=== PATIENT | female | born 1990 | race African-American/Black ===

== ENCOUNTER 2020-02-24 17:41 | Emergency (ER) | payer MEDICAID ==
[~2020-02-24] VITALS: Ht 167.6 cm; Wt 95.5 kg
[2020-02-24 19:17] VITALS: BP 116/66
== END 2020-02-24 20:10 | disposition home or self-care (01) ==
LOC: ER 17:41
DX: S80.862A Insect bite (nonvenomous), left lower leg, initial encounter (principal); S80.861A Insect bite (nonvenomous), right lower leg, initial encounter; Z98.890 Other specified postprocedural states; W57.XXXA Bitten or stung by nonvenomous insect and other nonvenomous arthropods, initial encounter; Y93.89 Activity, other specified; Y92.89 Other specified places as the place of occurrence of the external cause; Y99.8 Other external cause status
CPT/HCPCS: 99281